=== PATIENT | female | born 1965 | race Two or more races ===

== ENCOUNTER 2017-02-27 11:16 | Emergency (ER) | payer SELFPAY ==
[~2017-02-27] VITALS: Ht 160 cm; Wt 70.3 kg
[2017-02-27 12:00] VITALS: BP 119/64
[2017-02-27] MEDS ORDERED: IBUPROFEN 600 MG TABLET PO ONE ×2 (13:00→13:06)
[2017-02-27] MEDS ORDERED: ONDANSETRON 4 MG TAB.RAPDIS SL ONE (13:00)
[2017-02-27] MEDS ORDERED: ACETAMINOPHEN 325 MG TABLET ONE (13:06)
[2017-02-27] MEDS ORDERED: ONDANSETRON 4 MG TAB.RAPDIS ONE (13:07)
--- NOTE | 2017-02-27 13:13 | NUR ---
PAIN MEDICATION GIVEN ORDERED
[2017-02-27] MEDS ORDERED: ACETAMINOPHEN 650 MG/20.3 ML UDC PO ONE (13:30)
[2017-02-27] MEDS ORDERED: IV NS 0.9% 500 ML BAG IV ONE (14:00)
[2017-02-27] MEDS ORDERED: ONDANSETRON HCL/PF 4 MG/2 ML VIAL IVP ONE (14:00)
[2017-02-27 14:10] LABS: BASOPHILS % (AUTO) 0.3 % (0.0-2.0); EOSINOPHILS # (AUTO) 0.1 /CMM (0.0-0.7); EOSINOPHILS % (AUTO) 1.3 % (0.0-6.0); HEMATOCRIT 35 % (33-45); HEMOGLOBIN 11.8 g/dL (11.5-14.8); LYMPHOCYTES # (AUTO) 1.5 /CMM (0.8-4.8); LYMPHOCYTES % (AUTO) 14.4 % (20.0-44.0); MEAN CORPUSCULAR HEMOGLOBIN 25 PG (26.0-33.0); MEAN CORPUSCULAR HGB CONC 34 g/dl (31.0-36.0); MEAN CORPUSCULAR VOLUME 75 fL (82-100); MONOCYTES # (AUTO) 0.9 /CMM (0.1-1.30); MONOCYTES % (AUTO) 8.5 % (2.0-12.0); NEUTROPHILS # (AUTO) 8.3 /CMM (1.8-8.9); NEUTROPHILS % (AUTO) 75.5 % (43.0-81.0); PLATELET COUNT (AUTO) 322 /CMM (150-450); RDW COEFFICIENT OF VARIATION 14.2 (11.5-15.0); RED BLOOD CELL COUNT(AUTO) 4.71 MIL/uL (4.0-5.2); WHITE BLOOD COUNT (AUTO) 10.8 K/uL (4.3-11.0)
[2017-02-27] MEDS ORDERED: MORPHINE SULFATE INJ 2 MG/ML DISP.SYRIN IV ONE (14:30)
[2017-02-27 14:42] LABS: CALCIUM, SERUM 8.7 mg/dL (8.5-10.1); CREATININE 0.7 mg/dL (0.6-1.3); POTASSIUM 3.5 mmol/L (3.5-5.1)
[2017-02-27] MEDS ORDERED: ONDANSETRON HCL/PF 4 MG/2 ML VIAL ONE (15:17)
[2017-02-27] MEDS ORDERED: MORPHINE SULFATE INJ 2 MG/ML DISP.SYRIN ONE (15:17)
[2017-02-27 15:28] LABS: INR 0.95 (0.87-1.13); PROTHROMBIN TIME 9.9 SECS (9.5-12.7)
[2017-02-27] MEDS ORDERED: DEXAMETHASONE SOD PHOSPHATE 4 MG/ML VIAL IV ONE (16:30)
--- NOTE | 2017-02-27 17:07 | NUR ---
CALLED [facility]. THEY DO NOT HAVE [employer] [facility]
--- NOTE | 2017-02-27 17:18 | NUR ---
PRESENTED CASE TO EM BREWSTER
--- NOTE | 2017-02-27 17:42 | NUR ---
SPO[place] WITH KATHERINE [place] [facility] [facility] AT [facility]. NUMBER FOR REPORT [id number]. [id number]. ACCEPTING ER MD DR GRUBBS.
--- NOTE | 2017-02-27 18:00 | NUR ---
CALLED [facility] FOR S TRANSPORT TO [facility] ER. [phone] [id number] PROVIDED @ [phone]. TRIP #[id number]
[2017-02-27] MEDS ORDERED: DEXAMETHASONE SOD PHOSPHATE 10 MG/ML VIAL ONE (18:05)
--- NOTE | 2017-02-27 22:45 | NUR ---
[facility]
== END 2017-02-27 23:00 | disposition short-term general hospital (02) ==
LOC: ER 11:18
DX: R51 Headache (principal); R20.2 Paresthesia of skin; R47.81 Slurred speech
CPT/HCPCS: 36415; 70450; 80048; 84484; 85025; 85610; 85730; 93005; 96374; 96375; 99285; A4606; J1100; J2270; J2405; J7040; Q0162; Z7610